=== PATIENT | female | born 1995 | race Caucasian/White ===

== ENCOUNTER 2017-02-16 15:48 | Emergency (ER) | payer MEDICAID ==
[~2017-02-16] VITALS: Ht 167.6 cm; Wt 102.3 kg
[2017-02-16 15:49] VITALS: BP 119/75
[2017-02-16] MEDS ORDERED: ONDANSETRON 2MG/ML, 2ML IVPush ONE (16:00)
[2017-02-16] MEDS ORDERED: SODIUM CHLORIDE 0.9% 1,000ML IVBOLUS ONE (16:00)
[2017-02-16] MEDS ORDERED: SODIUM CHLORIDE FLUSH 10ML SYR IVF ONE (16:00)
[2017-02-16] MEDS ORDERED: ONDANSETRON 2MG/ML, 2ML ONE (16:10)
[2017-02-16 16:26] LABS: HEMATOCRIT 40.4 % (34.6-47.8); HEMOGLOBIN 13.7 g/dL (11.7-16.4); WHITE BLOOD COUNT 7.1 x10^3/uL (3.4-10)
[2017-02-16 16:33] LABS: ASPARTATE AMINO TRANSFERASE 13 U/L (15-37); BLOOD UREA NITROGEN 6 mg/dL (7-18)
== END 2017-02-16 18:16 ==
LOC: ED 18:10
DX: O23.42 Unspecified infection of urinary tract in pregnancy, second trimester (principal); Z3A.14 14 weeks gestation of pregnancy
CPT/HCPCS: 36415; 76805; 80053; 81001; 84702; 85025; 86901; 87086; 99285

== ENCOUNTER 2018-05-05 13:08 | Emergency (ER) | payer MEDICAID ==
[~2018-05-05] VITALS: Ht 167.6 cm; Wt 74.9 kg
[2018-05-05 13:10] VITALS: BP 107/59
--- NOTE | 2018-05-05 13:27 | NUR ---
PT AMBULATED TO ROOM #7 WITHOUT ASSIST.
[2018-05-05] MEDS ORDERED: KETOROLAC 30 MG/1 ML IM ONE (13:30)
[2018-05-05] MEDS ORDERED: DIAZEPAM 5 MG TABLET PO ONE (13:30)
[2018-05-05] MEDS ORDERED: KETOROLAC 30 MG/1 ML ONE (13:37)
[2018-05-05] MEDS ORDERED: DIAZEPAM 5 MG TABLET ONE (13:37)
[2018-05-05 13:42] LABS: MICROSCOPIC INDICATED
[2018-05-05 13:54] LABS: CULTURE INDICATED? YES
== END 2018-05-05 14:36 | disposition home or self-care (01) ==
LOC: ED 14:20
DX: S39.012A Strain of muscle, fascia and tendon of lower back, initial encounter (principal); Z88.0 Allergy status to penicillin; X58.XXXA Exposure to other specified factors, initial encounter; Y93.89 Activity, other specified; Y92.89 Other specified places as the place of occurrence of the external cause; Y99.8 Other external cause status
CPT/HCPCS: 81001; 87086; 96372; 99283; J1885

== ENCOUNTER 2018-06-04 19:29 | Emergency (ER) | payer MEDICAID ==
[~2018-06-04] VITALS: Ht 165.1 cm; Wt 65.4 kg
[2018-06-04 20:01] LABS: BASOPHILS # (AUTO) 0.02 x10^3/uL (0-0.1); BASOPHILS % (AUTO) 0 % (0-1); EOSINOPHILS # (AUTO) 0.11 x10^3/uL (0-0.4); EOSINOPHILS % (AUTO) 2 % (1-7); LYMPHOCYTES # (AUTO) 1.18 x10^3/uL (1-3.4); LYMPHOCYTES % (AUTO) 18 % (22-44); MD NO; MEAN CORPUSCULAR HEMOGLOBIN 30.7 pg (27.0-34.8); MEAN CORPUSCULAR HGB CONC 33.6 g/dL (32.4-35.8); MEAN CORPUSCULAR VOLUME 91.4 fL (80-100); MEAN PLATELET VOLUME 8.2 fL (7.4-10.4); MONOCYTES # (AUTO) 0.27 x10^3/uL (0.2-0.8); MONOCYTES % (AUTO) 4 % (2-9); NEUTROPHILS # (AUTO) 4.93 x10^3/uL (1.8-6.8); NEUTROPHILS % (AUTO) 76 % (42-75); PLATELET COUNT 186 x10^3/uL (130-400); RED BLOOD COUNT 5.04 x10^6/uL (3.82-5.3); RED CELL DISTRIBUTION WIDTH 14.1 % (9.6-15.2)
[2018-06-04 20:07] LABS: ANION GAP 8 mmol/L (5-15); CALCIUM 8.9 mg/dL (8.5-10.1); CHLORIDE 110 mmol/L (98-107)
[2018-06-04 20:13] LABS: ALANINE AMINOTRANSFERASE 17 U/L (12-78); ALKALINE PHOSPHATASE 84 U/L (45-117); BILIRUBIN,TOTAL 0.8 mg/dL (0.2-1.0); CREATININE 0.72 mg/dL (0.55-1.02); TOTAL PROTEIN 8.3 g/dL (6.4-8.2)
[2018-06-04 20:32] LABS: MICROSCOPIC NOT IND
[2018-06-04 20:34] LABS: CULTURE INDICATED? NO
[2018-06-04 21:37] VITALS: BP 113/74
== END 2018-06-04 21:39 | disposition home or self-care (01) ==
LOC: ED 20:06
DX: R11.2 Nausea with vomiting, unspecified (principal); J00 Acute nasopharyngitis [common cold]
CPT/HCPCS: 36415; 71046; 80053; 81003; 83690; 84703; 85025; 99284

== ENCOUNTER 2018-07-17 12:13 | Emergency (ER) | payer MEDICAID ==
[~2018-07-17] VITALS: Ht 167.6 cm; Wt 71.1 kg
[2018-07-17 12:52] LABS: BASOPHILS # (AUTO) 0.02 x10^3/uL (0-0.1); BASOPHILS % (AUTO) 0 % (0-1); EOSINOPHILS # (AUTO) 0.03 x10^3/uL (0-0.4); EOSINOPHILS % (AUTO) 1 % (1-7); LYMPHOCYTES % (AUTO) 26 % (22-44); MD NO; MEAN CORPUSCULAR HEMOGLOBIN 29.6 pg (27.0-34.8); MEAN CORPUSCULAR HGB CONC 32.8 g/dL (32.4-35.8); MEAN CORPUSCULAR VOLUME 90.2 fL (80-100); MEAN PLATELET VOLUME 7.8 fL (7.4-10.4); MONOCYTES # (AUTO) 0.27 x10^3/uL (0.2-0.8); MONOCYTES % (AUTO) 5 % (2-9); NEUTROPHILS # (AUTO) 3.72 x10^3/uL (1.8-6.8); NEUTROPHILS % (AUTO) 68 % (42-75); PLATELET COUNT 219 x10^3/uL (130-400); RED BLOOD COUNT 4.75 x10^6/uL (3.82-5.3); RED CELL DISTRIBUTION WIDTH 14.5 % (9.6-15.2)
--- NOTE | 2018-07-17 12:55 | NUR ---
TO ROOM FROM LOBBY. KERRY. PT TO US.
[2018-07-17 13:01] LABS: ALBUMIN 4.1 g/dL (3.4-5.0); ANION GAP 4 mmol/L (5-15); CALCIUM 8.7 mg/dL (8.5-10.1); CHLORIDE 112 mmol/L (98-107); CREATININE 0.69 mg/dL (0.55-1.02)
--- NOTE | 2018-07-17 13:13 | NUR ---
SBAR REPORT FROM FRED TIMMONS. PT IN .
[2018-07-17 14:10] LABS: CULTURE INDICATED? YES; MICROSCOPIC INDICATED
[2018-07-17 15:00] VITALS: BP 118/79
--- NOTE | 2018-07-17 15:00 | NUR ---
Patient/Caregiver given discharge instructions and they have confirmed that they understand the instructions. Patient ambulatory with steady gait. PT LEFT WITH ALL PERSONAL BELONGINGS.
== END 2018-07-17 15:02 | disposition home or self-care (01) ==
LOC: ED 14:59
DX: N83.291 Other ovarian cyst, right side (principal)
CPT/HCPCS: 36415; 76830; 80048; 81001; 82040; 84703; 85025; 87086; 99284

== ENCOUNTER 2018-08-02 11:32 | Emergency (ER) | payer MEDICAID ==
[~2018-08-02] VITALS: Ht 167.6 cm; Wt 72.0 kg
--- NOTE | 2018-08-02 11:44 | NUR ---
PT TO ROOM FROM LOBBY
--- NOTE | 2018-08-02 11:56 | NUR ---
23 Y/O FEMALE PRESENTS TO ED WITH C/O TROUBLE SWALLOWING. PT STATES SHE GOT A TOOTH EXTRACTED YESTERDAY, TOOK TWO CLINDA AND STARTED HAVING TROUBLE BREATHING. PT STATES SHE TOOK A BENADRYL AND FELT ITCHY. NO VISIBLE RASH. NO ACUTE DISTRESS NOTED. FAMILY BEDSIDE. PT GIVEN WARM BLANKET. NO C/O N/V/D, TRAUMA, SYNCOPE, CP, SOB PT PLACED ON MONITORS
[2018-08-02] MEDS ORDERED: FAMOTIDINE 20 MG TABLET ONE (12:01)
[2018-08-02] MEDS ORDERED: DIPHENHYDRAMINE 50 MG/ML, 1ML ONE (12:01)
--- NOTE | 2018-08-02 12:14 | NUR ---
PT RESTING ON GURNEY. NO ACUTE DISTRESS NOTED. NO NEEDS REQUESTED AT THIS TIME.
[2018-08-02] MEDS ORDERED: DIPHENHYDRAMINE 50 MG/ML, 1ML IM ONE (12:30)
[2018-08-02] MEDS ORDERED: FAMOTIDINE 20 MG TABLET PO ONE (12:30)
--- NOTE | 2018-08-02 13:06 | NUR ---
TASK RN: First contact with patient, discharge instructions discussed with patient including when to return to emergency department, patient verbalizes understanding. Prescription provided to patient with instruction for use. Patient dresses independently, ambulates independently with steady gait to discharge desk in no acute distress.
[2018-08-02 13:07] VITALS: BP 128/71
== END 2018-08-02 13:09 | disposition home or self-care (01) ==
LOC: ED 11:58
DX: T36.8X5A Adverse effect of other systemic antibiotics, initial encounter (principal); Z87.891 Personal history of nicotine dependence; X58.XXXA Exposure to other specified factors, initial encounter; Y93.89 Activity, other specified; Y92.89 Other specified places as the place of occurrence of the external cause; Y99.8 Other external cause status
CPT/HCPCS: 96372; 99283; J1200

== ENCOUNTER 2019-05-10 00:09 | Emergency (ER) | payer MEDICAID ==
[~2019-05-10] VITALS: Ht 167.6 cm; Wt 72.0 kg
[2019-05-10 00:27] VITALS: BP 124/80
[2019-05-10] MEDS ORDERED: CEPHALEXIN 500 MG CAPSULE PO ONE (00:30)
[2019-05-10] MEDS ORDERED: CEPHALEXIN 500 MG CAPSULE ONE (00:41)
--- NOTE | 2019-05-10 00:43 | NUR ---
Patient/Caregiver given discharge instructions and they have confirmed that they understand the instructions. Patient ambulatory with steady gait.
== END 2019-05-10 00:54 | disposition home or self-care (01) ==
LOC: ED 00:20
DX: T22.212A Burn of second degree of left forearm, initial encounter (principal); T31.0 Burns involving less than 10% of body surface; X30.XXXA Exposure to excessive natural heat, initial encounter; Y93.G3 Activity, cooking and baking; Y92.000 Kitchen of unspecified non-institutional (private) residence as the place of occurrence of the external cause; Y99.8 Other external cause status
CPT/HCPCS: 99283

== ENCOUNTER 2019-11-18 21:28 | Emergency (ER) | payer MEDICAID ==
[~2019-11-18] VITALS: Ht 167.6 cm; Wt 79.8 kg
[2019-11-18] MEDS ORDERED: SODIUM CHLORIDE FLUSH 10ML SYR IVF ONE (22:00)
[2019-11-18] MEDS ORDERED: ONDANSETRON 2MG/ML, 2ML IVPush ONE (22:00)
[2019-11-18] MEDS ORDERED: ONDANSETRON 2MG/ML, 2ML ONE (22:03)
[2019-11-18] MEDS ORDERED: MORPHINE SULFATE 4 MG/ML, 1ML ONE ×2 (22:04→22:56)
[2019-11-18] MEDS: MORPHINE SULFATE 4 MG/ML, 1ML IVPush PRN ×2 (22:07→22:58)
[2019-11-18 22:08] LABS: BASOPHILS # (AUTO) 0.02 x10^3/uL (0-0.1); BASOPHILS % (AUTO) 0 % (0-1); EOSINOPHILS # (AUTO) 0.08 x10^3/uL (0-0.4); EOSINOPHILS % (AUTO) 2 % (1-7); LYMPHOCYTES # (AUTO) 1.35 x10^3/uL (1-3.4); LYMPHOCYTES % (AUTO) 27 % (22-44); MD NO; MEAN CORPUSCULAR HEMOGLOBIN 30.5 pg (27.0-34.8); MEAN CORPUSCULAR HGB CONC 33.2 g/dL (32.4-35.8); MONOCYTES # (AUTO) 0.24 x10^3/uL (0.2-0.8); MONOCYTES % (AUTO) 5 % (2-9); NEUTROPHILS # (AUTO) 3.32 x10^3/uL (1.8-6.8); NEUTROPHILS % (AUTO) 66 % (42-75); PLATELET COUNT 224 x10^3/uL (130-400); RED CELL DISTRIBUTION WIDTH 14.1 % (9.6-15.2)
[2019-11-18 22:13] LABS: MICROSCOPIC NOT IND
[2019-11-18 22:27] LABS: ALANINE AMINOTRANSFERASE 16 U/L (12-78); ANION GAP 5 mmol/L (5-15); CALCIUM 8.9 mg/dL (8.5-10.1); CHLORIDE 112 mmol/L (98-107); CREATININE 0.75 mg/dL (0.55-1.02)
[2019-11-18 22:31] LABS: ALKALINE PHOSPHATASE 67 U/L (45-117); BILIRUBIN,TOTAL 0.5 mg/dL (0.2-1.0); TOTAL PROTEIN 7.8 g/dL (6.4-8.2)
--- NOTE | 2019-11-18 23:19 | NUR ---
Pt to US.
[2019-11-19 01:30] VITALS: BP 125/68
== END 2019-11-19 01:33 | disposition home or self-care (01) ==
LOC: ED 22:03
DX: R10.31 Right lower quadrant pain (principal)
CPT/HCPCS: 36415; 76830; 80053; 81003; 84703; 85025; 96374; 96375; 96376; 99284; J2270; J2405

== ENCOUNTER 2020-01-05 11:51 | Emergency (ER) | payer MEDICAID ==
[~2020-01-05] VITALS: Ht 167.6 cm; Wt 92.6 kg
[2020-01-05 11:58] VITALS: BP 115/71
--- NOTE | 2020-01-05 13:30 | NUR ---
DRY PRODUCTIVE COUGH AND NOT FEELING WELL
== END 2020-01-05 14:09 | disposition home or self-care (01) ==
LOC: ED 13:55
DX: J06.9 Acute upper respiratory infection, unspecified (principal)
CPT/HCPCS: 71045; 99283

== ENCOUNTER 2020-05-07 06:57 | Emergency (ER) | payer MEDICAID ==
[~2020-05-07] VITALS: Ht 167.6 cm; Wt 79.3 kg
--- NOTE | 2020-05-07 07:23 | NUR ---
PT AMBULATED TO BR, URINE COLLECTED/SENT TO LAB. PT WITH 10/10 RLQ ABD/PELVIC PAIN RADIATING TO R FLANK. ONSET TWO DAYS AGO BUT WORSENED AND AWOKE PT THIS AM. PT STATES MENSES STARTED YESTERDAY. PT WITH HX OF SAME, DX WITH OVARIAN CYST ONE OCCASION, NO DIAGNOSIS WHEN SEEN A DIFFERENT TIME. BP CUFF, PULSE OX IN PLACE. CALL LIGHT WITHIN REACH. WARM BLANKET PROVIDED.
[2020-05-07] MEDS ORDERED: KETOROLAC 30 MG/1 ML IM ONE (07:30)
[2020-05-07] MEDS ORDERED: ONDANSETRON ODT 4 MG PO ONE (07:30)
[2020-05-07 07:52] LABS: MICROSCOPIC INDICATED
[2020-05-07 07:56] LABS: BASOPHILS % (AUTO) 0 % (0-1); EOSINOPHILS % (AUTO) 1 % (1-7); LYMPHOCYTES % (AUTO) 25 % (22-44); MEAN CORPUSCULAR HEMOGLOBIN 30.7 pg (27.0-34.8); MEAN CORPUSCULAR HGB CONC 33.5 g/dL (32.4-35.8); MEAN PLATELET VOLUME 7.6 fL (7.4-10.4); MONOCYTES % (AUTO) 7 % (2-9); NEUTROPHILS % (AUTO) 66 % (42-75); PLATELET COUNT 208 x10^3/uL (130-400); RED BLOOD COUNT 4.37 x10^6/uL (3.82-5.3); RED CELL DISTRIBUTION WIDTH 13.4 % (9.6-15.2)
[2020-05-07 07:57] LABS: MD NO
[2020-05-07] MEDS ORDERED: ONDANSETRON 2MG/ML, 2ML ONE (08:09)
[2020-05-07] MEDS ORDERED: KETOROLAC 30 MG/1 ML ONE (08:09)
[2020-05-07 08:10] LABS: ALANINE AMINOTRANSFERASE 18 U/L (12-78); ALBUMIN 3.6 g/dL (3.4-5.0); ANION GAP 3 mmol/L (5-15); CALCIUM 8.4 mg/dL (8.5-10.1); CHLORIDE 110 mmol/L (98-107); CREATININE 0.71 mg/dL (0.55-1.02)
--- NOTE | 2020-05-07 08:11 | NUR ---
PT IN US.
[2020-05-07 08:14] LABS: ALKALINE PHOSPHATASE 64 U/L (45-117); BILIRUBIN,TOTAL 0.3 mg/dL (0.2-1.0); TOTAL PROTEIN 7.2 g/dL (6.4-8.2)
[2020-05-07] MEDS ORDERED: ONDANSETRON 2MG/ML, 2ML IVPush ONE (08:30)
[2020-05-07] MEDS ORDERED: KETOROLAC 30 MG/1 ML IVPush ONE (08:30)
[2020-05-07] MEDS ORDERED: SODIUM CHLORIDE FLUSH 10ML SYR IVF ONE (08:30)
--- NOTE | 2020-05-07 08:48 | NUR ---
PT BACK FROM US. CATH UA OBTAINED/WALKED TO LAB. PT MEDICATED PER ERP ORDER FOR PAIN. CALL LIGHT WITHIN REACH.
[2020-05-07 09:07] LABS: MICROSCOPIC NOT IND
--- NOTE | 2020-05-07 09:16 | NUR ---
ALL RESULTS BACK, PT FOR RECHECK.
[2020-05-07 09:20] VITALS: BP 117/77
== END 2020-05-07 09:48 | disposition home or self-care (01) ==
LOC: ED 08:45
DX: R10.2 Pelvic and perineal pain (principal); R10.31 Right lower quadrant pain; F17.200 Nicotine dependence, unspecified, uncomplicated; Z98.51 Tubal ligation status; Z88.0 Allergy status to penicillin; Z88.1 Allergy status to other antibiotic agents
CPT/HCPCS: 36415; 76830; 80053; 81001; 81003; 84703; 85025; 87086; 96374; 96375; 99284; J1885; J2405

== ENCOUNTER 2020-05-28 00:16 | Emergency (ER) | payer MEDICAID ==
[~2020-05-28] VITALS: Ht 167.6 cm; Wt 85.3 kg
[2020-05-28 00:17] VITALS: BP 127/79
[2020-05-28] MEDS ORDERED: LIDOCAINE-MPF 1%, 5ML ONE (00:44)
[2020-05-28] MEDS ORDERED: LIDOCAINE-MPF 1%, 5ML INFIL ONE (01:00)
--- NOTE | 2020-05-28 01:19 | NUR ---
REPORT GIVEN TO IAIN LINN
[2020-05-28] MEDS ORDERED: SULFAMETH./TRIMETHOPRIM DS 800MG/160MG TABLET ONE (01:29)
[2020-05-28] MEDS ORDERED: SULFAMETH./TRIMETHOPRIM DS 800MG/160MG TABLET PO ONE (01:30)
== END 2020-05-28 01:36 | disposition home or self-care (01) ==
LOC: ED 00:43
DX: L02.31 Cutaneous abscess of buttock (principal); F17.210 Nicotine dependence, cigarettes, uncomplicated; Z88.0 Allergy status to penicillin; Z98.51 Tubal ligation status
CPT/HCPCS: 10060; 99283; 99406

== ENCOUNTER 2020-09-29 07:08 | Emergency (ER) | payer MEDICAID ==
[~2020-09-29] VITALS: Ht 165.1 cm; Wt 91.5 kg
--- NOTE | 2020-09-29 07:24 | NUR ---
ASSUMED CARE OF PT. PT WAS PROVIDED GOWN AND INSTRUCTED TO CHANGE. SHE REPORTS COUGH AND CONGESTION X3 DAYS, STARTED HAVING SOB YESTERDAY AND IS FEELING DIZZY.
--- NOTE | 2020-09-29 07:38 | NUR ---
WIRE SPOOLER BEDSIDE
--- NOTE | 2020-09-29 07:43 | NUR ---
EKG COMPLETED BY TRIM CARPENTER, PT PROVIDED WARM BLANKET. MARQUEZ, CALL LIGHT W/IN REACH.
[2020-09-29 08:13] VITALS: BP 112/42
--- NOTE | 2020-09-29 08:14 | NUR ---
Patient given discharge instructions and they have confirmed that they understand the instructions. Patient ambulatory with steady gait.
== END 2020-09-29 08:34 | disposition home or self-care (01) ==
LOC: ED 08:07
DX: J06.9 Acute upper respiratory infection, unspecified (principal); R94.31 Abnormal electrocardiogram [ECG] [EKG]
CPT/HCPCS: 71045; 93005; 99283

== ENCOUNTER 2020-11-12 22:06 | Emergency (ER) | payer MEDICAID ==
[~2020-11-12] VITALS: Ht 165.1 cm; Wt 88.1 kg
--- NOTE | 2020-11-12 23:08 | NUR ---
injection maintenance technician: Pt ambulatory to room from lobby at this time.
[2020-11-12 23:10] LABS: BASOPHILS % (AUTO) 1 % (0-1); EOSINOPHILS % (AUTO) 1 % (1-7); LYMPHOCYTES % (AUTO) 31 % (22-44); MEAN CORPUSCULAR HEMOGLOBIN 30.8 pg (27.0-34.8); MEAN CORPUSCULAR HGB CONC 34.4 g/dL (32.4-35.8); MEAN PLATELET VOLUME 7.9 fL (7.4-10.4); MONOCYTES % (AUTO) 5 % (2-9); NEUTROPHILS % (AUTO) 63 % (42-75); PLATELET COUNT 219 x10^3/uL (130-400); RED BLOOD COUNT 4.87 x10^6/uL (3.82-5.3); RED CELL DISTRIBUTION WIDTH 13.2 % (9.6-15.2)
[2020-11-12 23:15] LABS: ALBUMIN 4.1 g/dL (3.4-5.0); ANION GAP 2 mmol/L (5-15); CHLORIDE 108 mmol/L (98-107); CREATININE 0.75 mg/dL (0.55-1.02)
[2020-11-12 23:41] LABS: MICROSCOPIC NOT IND
[2020-11-13] MEDS ORDERED: ONDANSETRON ODT 4 MG ONE (00:02)
[2020-11-13] MEDS ORDERED: KETOROLAC 30 MG/1 ML ONE (00:02)
[2020-11-13] MEDS: KETOROLAC 30 MG/1 ML IM ONE ×2 (00:11→00:13)
[2020-11-13 00:29] VITALS: BP 131/84
[2020-11-13] MEDS ORDERED: ONDANSETRON ODT 4 MG PO ONE (00:30)
== END 2020-11-13 00:30 | disposition home or self-care (01) ==
LOC: ED 23:15
DX: O26.891 Other specified pregnancy related conditions, first trimester (principal); R11.2 Nausea with vomiting, unspecified; R51.9 Headache, unspecified; F17.210 Nicotine dependence, cigarettes, uncomplicated; Z3A.01 Less than 8 weeks gestation of pregnancy
CPT/HCPCS: 36415; 80048; 81003; 82040; 84702; 85025; 99283; Q0162; J1885

== ENCOUNTER 2021-01-01 20:50 | Emergency (ER) | payer MEDICAID ==
[~2021-01-01] VITALS: Ht 167.6 cm; Wt 88.4 kg
[2021-01-01 20:57] VITALS: BP 121/91
--- NOTE | 2021-01-01 22:00 | NUR ---
called in the lobby, no answer.
--- NOTE | 2021-01-01 22:15 | NUR ---
called in the lobby, no answer
--- NOTE | 2021-01-01 22:30 | NUR ---
called in the lobby, no answer
== END 2021-01-01 22:32 | disposition left against medical advice (07) ==
LOC: ED 20:55
DX: R05 Cough (principal); R50.9 Fever, unspecified; R06.02 Shortness of breath; Z53.21 Procedure and treatment not carried out due to patient leaving prior to being seen by health care provider